=== PATIENT | male | born 1990 | race American Indian/Alaskan Native ===

== ENCOUNTER 2018-12-30 16:30 | Emergency (ER) | payer SELFPAY ==
--- NOTE | 2018-12-30 17:21 | Emergency Department Report ---
Chief Complaint: Urogenital-Male Stated Complaint: POSS UTI Time Seen by Provider: 12/30/18 17:16 - HPI History of Present Illness: HERE FOR STD CHECK ABC INTACT NO CP NO SOB MSE COMPLETED - Exam Vital Signs: Vital Signs 12/30/18 17:17 Temperature 98 F Pulse Rate 62 Respiratory 16 Rate Blood Pressure 121/65 [Left] O2 Sat by Pulse 96 Oximetry MSE screening note: Focused history and physical exam performed. Due to findings the following was ordered: ED Disposition for MSE Condition: Stable
[2018-12-30 18:35] LABS: Bilirubin,Urine NEG (Negative); Blood,Urine NEG (Negative); Color,Urine Amber (Yellow); Protein,Urine <15 mg/dL mg/dL (Negative); Urobilinogen,Urine < 2.0 mg/dL (<2.0)
[2018-12-30] MEDS ORDERED: ZITHROMAX PO ONE (20:16)
[2018-12-30] MEDS ORDERED: XYLOCAINE 1% MPF 5 mL INFILTRATI ONE (20:16)
[2018-12-30] MEDS ORDERED: ROCEPHIN IM ONE (20:16)
[2018-12-30] MEDS ORDERED: FLAGYL PO ONE (20:16)
--- NOTE | 2018-12-30 20:18 | Emergency Department Report ---
ED Male HPI - General Chief complaint: Urogenital-Male Stated complaint: POSS UTI Time Seen by Provider: 12/30/18 17:16 Source: patient Mode of arrival: Ambulatory Limitations: No Limitations - History of Present Illness Initial comments: 28-year-old -[place] male presented to the emergency room for penile discharge is white burning with urination. Patient is sexually active with females unprotected. Patient denies any STD history. Patient reports that he recently had ST D check December 21 at 8. Patient also admits to having intercourse unprotected after being tested. Patient denies any fever or chills no nausea no vomiting no abdominal pain. Patient reports he took aspirin for pain. She has no known drug allergies currently takes no medications on a daily basis. Patient reports these increased taken showers to 3 times a day increase his fluid intake and started taking cranberry juice. MD Complaint: penile discharge, dysuria -: days(s) (4) Location: penis Severity scale (0 -10): 8 Quality: burning Consistency: intermittent Improves with: none Worsens with: movement discharge, dysuria. denies: swelling, mass, urinary retention, fever, nausea/vomiting, incontinence - Related Data Allergies Allergy/AdvReac Type Severity Reaction Status Date / Time No Known Allergies Allergy Verified 12/30/18 17:16 ED Review of Systems ROS: Stated complaint: POSS UTI Other details as noted in HPI Comment: All other systems reviewed and negative Genitourinary: dysuria, discharge ED Past Medical Hx - Past Medical History Previous Medical History?: No - Surgical History Past Surgical History?: No - Social History Smoking Status: Never Smoker Substance Use Type: None ED Physical Exam - General Limitations: No Limitations General appearance: alert, in no apparent distress - Head Head exam: Present: atraumatic, normocephalic - Eye Eye exam: Present: normal appearance - ENT ENT exam: Present: mucous membranes moist - exam: Present: urethral discharge, circumcision. Absent: testicular tenderness External exam: Present: other (right groin lymphadenopathy) - Extremities Exam Extremities exam: Present: normal inspection, full ROM - Neurological Exam Neurological exam: Present: alert, oriented X3 - Psychiatric Psychiatric exam: Present: normal affect, normal mood - Skin Skin exam: Present: warm, dry, intact, normal color. Absent: rash ED Course Vital Signs 12/30/18 17:17 Temperature 98 F Pulse Rate 62 Respiratory 16 Rate Blood Pressure 121/65 [Left] O2 Sat by Pulse 96 Oximetry ED Medical Decision Making - Medical Decision Making Patient has been evaluated by this provider fast track. Urinalysis was sent out, symmetric N gonorrhea was sent out. We'll treat patient for gonorrhea Chlamydia and Trichomonas. Patient is to follow-up with [facility] or [facility] department for further evaluation. Information given to patient on STD, and safe sex. Encourage patient to use condoms when having intercourse and this prevents STDs. Critical care attestation.: If time is entered above; I have spent that time in minutes in the direct care of this critically ill patient, excluding procedure time. ED Disposition Clinical Impression: Concern about STD in male without diagnosis Disposition: DC-01 TO HOME OR SELFCARE Is pt being admited?: No Does the pt Need Aspirin: No Condition: Stable Instructions: Safe Sex (ED), Sexually Transmitted Diseases (ED) Additional Instructions: Please follow up with [facility] or health department for further evaluation and testing. Please use condoms with intercourse. Please refrain from intercourse for the next 2 weeks for treatment. Referrals: PRIMARY CARE, [Primary Care Provider] - 3-5 Days Forms: Work/School Release Form(ED)
[2018-12-30 21:52] VITALS: BP 116/73
== END 2018-12-30 21:53 | disposition home or self-care (01) ==
LOC: ED 16:30
DX: R36.9 Urethral discharge, unspecified (principal); R30.0 Dysuria; Z20.2 Contact with and (suspected) exposure to infections with a predominantly sexual mode of transmission
CPT/HCPCS: 81001; 87591; 96372; 99283; J0696